=== PATIENT | female | born 1960 | race Caucasian/White ===

== ENCOUNTER 2024-08-02 06:18 | Day surgery (SDC) | payer BC, SELFPAY ==
[2024-08-02] VITALS (23 sets, daily range): BP systolic 97–128; BP diastolic 59–83; BMI 35.8
[2024-08-02 07:14] LABS: Glucose - Point of Care 130 mg/dl (70-99)
[2024-08-02 08:35] LABS: ACT-LR - POC 316 Seconds (116-155)
[2024-08-02 08:55] LABS: ACT-LR - POC 388 Seconds (116-155)
--- NOTE | 2024-08-02 09:02 | ITS.CL.ANGIO ---
[facility] - Angioplasty
Angioplasty
Procedure Report:
CARDIAC CATHETERIZATION REPORT
Date of Procedure: 08/02/2024
Referring: Cadence Kunz M.D.
INDICATION: Accelerating angina, known coronary artery disease.
PROCEDURE:
1. Left heart catheterization
2. Coronary angiography.
3. Successful PCI of OM 3.
ACCESS:
6 [place] right radial artery.
CATHETERS:
1. 5 [place] JR4.
2. 5 [place] JL 3.5.
3. 6 [place] EBU 3.5 guiding catheter.
HEMODYNAMIC DATA
Weight (kg): 91.6
AO (s/d/x, mmHg): 110/75/91
LV (s/x mmHg): 110/14
LEFT VENTRICULOGRAPHY: Not performed.
CORONARY ANGIOGRAPHY
Dominance: Right.
Left Main: Short, bifurcating vessel. There is no appreciable coronary artery disease.
LAD: Normal size vessel giving rise to 1 significant diagonal. There is dense calcification throughout the proximal and mid vessel with mild to moderate luminal irregularities but no discrete stenosis.
Ramus: Congenitally absent.
Circumflex: Normal size, nondominant vessel giving rise to 3 obtuse marginals. Patent stents are observed in the proximal margin of OM1 as well as the mid circumflex. OM 2 and OM 3 originate very close to 1 another. There is a 99% lesion of OM
3 with CINDY I flow. There is a hazy, 70% lesion in the true AV groove circumflex distal to OM 3.
RCA: Normal size, dominant vessel. Patent stents are observed in the proximal vessel as well as the mid vessel. There is at least moderate calcification through the majority of the artery. There is a 30% lesion in the mid RCA as it enters the
crux.
INTERVENTION(S)
1. Successful PCI of the 99% ostial OM 3 lesion ([employer]onic [place] 2.25 x 12 BHANU, postdilated with a 2.25 NC balloon) with reduction in stenosis to 0%, restoring CINDY-3 flow.
Narrative:
The decision was made to proceed with percutaneous coronary intervention. The diagnostic catheter was removed over a wire and a 6Fr EBU 3.5 guiding catheter was advanced to the aortic root and seated in the left main coronary artery. Additional
heparin was given and a Power Turn Flex wire was advanced into the distal circumflex and into OM 3 where there was significant wire buckling.
A quick cross microcatheter was advanced into the distal circumflex to assist with wiring of OM 3. The power turn flex wire was withdrawn and a whisper wire was advanced through the microcatheter and into the OM 3. The wire was advanced into the
distal OM 3 with some difficulty. The quick cross microcatheter was withdrawn.
The 99% ostial OM 3 lesion was predilated with a 1.5 x 12 semi-compliant balloon to 12 jesus.
The whisper wire was exchanged for a power turn flex wire using the quick cross microcatheter and wire pinning technique. A BMW wire was advanced into the true AV groove circumflex for protection. The OM 3 lesion was predilated again with a 2.0 x
12 semicompliant balloon. During this part of the procedure, the patient did disclose that she was having some chest pain. Nitroglycerin spray was administered sublingually. Angiography confirmed CINDY-3 flow had been restored in the OM 3 and
remained in the AV groove circumflex.
The semi-compliant balloon was removed and a Medtronic [place] 2.25 x 12 drug-eluting stent was advanced. The stent was deployed at 12 atmospheres. The stent balloon was removed. A 2.25 x 8 noncompliant balloon was advanced into the stent and
the stent was postdilated to 12 atmospheres throughout and 16 jesus at the origin. Angiography was performed in orthogonal views, confirming good stent expansion and an excellent angiographic result. The patient reported that her chest pain was
dissipating. The coronary wire was withdrawn and the guide was disengaged from the artery. The catheter was removed over a standard J-wire.
Closure Device: Vascular band.
Radiation (mGy): 1441.67
DAP (cm2.Gy): 98.9650
Fluoroscopy time (minutes): 15.3
Sedation time (minutes): 76
CONCLUSIONS
1. Right dominant circulation with patent stents in the proximal and mid RCA, a 30% lesion in the mid RCA as it enters the crux, dense calcification throughout the proximal and mid LAD with luminal irregularities, patent stents in the origin of OM1
as well as the mid circumflex, a 70% lesion in the small distal circumflex beyond the origin of OM 3 and a 99% lesion in the origin of OM 3 with CINDY I flow, status post successful PCI ([employer]tronic [place] 2.25 x 12 BHANU, postdilated with a 2.25
NC balloon) with reduction in stenosis to 0%, restoring CINDY-3 flow.
2. Normal filling pressures (LVEDP = 14 mmHg at 91.6 kg).
RECOMMENDATIONS:
1. Expectant management after cardiac catheterization via right radial approach.
2. Limited weight bearing on the right wrist for one week.
3. Dual antiplatelet therapy with aspirin and clopidogrel for at least 12 months, followed by aspirin indefinitely.
4. Aggressive secondary prevention with high-dose, high potency statin, diet and lifestyle modification.
5. Goal LDL <55.
6. Guideline directed medical therapy as hemodynamics will tolerate.
7. Referral to cardiac rehab.
8. Stable for outpatient follow-up with Dr. Kunz at [facility].
Copy to: Cadence Kunz M.D., Cindy Patterson D.O.
Sebastián Gaona DO, FACC, FACP
--- NOTE | 2024-08-02 13:39 | W.PN.UPDATE ---
Update Note
Progress Note Update
Pt seen post OM3 PCI. Right radial cath site without ht/bleeding, non tender. OOB ambulating. Post EKG NSR 68s, no acute changes. To remain on DAPT w/asa, plavix as before- 300mg plavix bolus given post stenting today. Mild chest discomfort post
cath, no acute EKG change and relieved over time with rest. This is likely post procedural pain that will mellisa over the next 24 hours. Cardiac rehab consulted. Followup with Dr. Kunz as scheduled. Home today if cath site/tele remain stable.
== END 2024-08-02 14:05 | disposition home or self-care (01) ==
LOC: CATH 06:18
PROVIDERS: ATTENDING PHYSICIAN Internal Medicine Cardiovascular Disease; FAMILY PHYSICIAN Internal Medicine; OTHER PHYSICIAN Internal Medicine Cardiovascular Disease
DX: I25.110 Atherosclerotic heart disease of native coronary artery with unstable angina pectoris (principal); I10 Essential (primary) hypertension; E78.5 Hyperlipidemia, unspecified; I25.2 Old myocardial infarction; Z95.5 Presence of coronary angioplasty implant and graft; E11.9 Type 2 diabetes mellitus without complications; K21.9 Gastro-esophageal reflux disease without esophagitis; G25.0 Essential tremor; Z79.82 Long term (current) use of aspirin; Z79.01 Long term (current) use of anticoagulants; Z79.85 Long-term (current) use of injectable non-insulin antidiabetic drugs; Z79.84 Long term (current) use of oral hypoglycemic drugs
CPT/HCPCS: C1769; C1725; C1894; 82962; 85347; 93005; 93458; C1874; C9600; Q9967

== ENCOUNTER 2024-11-05 15:03 | Outpatient (RCR) | payer BC, SELFPAY ==
[2024-10-25 14:38] LABS: Glucose - Point of Care 92 mg/dl (70-99)
[2024-10-27 10:49] LABS: Glucose - Point of Care 212 mg/dl (70-99)
[2024-10-27 11:38] LABS: Glucose - Point of Care 184 mg/dl (70-99)
[2024-10-29 13:13] LABS: Glucose - Point of Care 145 mg/dl (70-99)
[2024-10-29 13:54] LABS: Glucose - Point of Care 83 mg/dl (70-99)
[2024-11-01 13:05] LABS: Glucose - Point of Care 164 mg/dl (70-99)
[2024-11-01 13:57] LABS: Glucose - Point of Care 95 mg/dl (70-99)
[2024-11-03 13:05] LABS: Glucose - Point of Care 159 mg/dl (70-99)
[2024-11-03 14:01] LABS: Glucose - Point of Care 89 mg/dl (70-99)
[2024-11-03 14:50] LABS: Glucose - Point of Care 130 mg/dl (70-99)
== END 2024-11-05 23:59 | disposition home or self-care (01) ==
LOC: CRHB 15:03
PROVIDERS: ATTENDING PHYSICIAN Internal Medicine Cardiovascular Disease; FAMILY PHYSICIAN Internal Medicine
DX: I25.10 Atherosclerotic heart disease of native coronary artery without angina pectoris (principal); Z95.5 Presence of coronary angioplasty implant and graft
CPT/HCPCS: 82962; 93797; 93798

== ENCOUNTER 2025-05-24 16:18 | Inpatient (IN) | payer BC, SELFPAY ==
[2025-05-24] VITALS (7 sets, daily range): BP systolic 108–138; BP diastolic 69–86; BMI 37.5
[2025-05-24 12:58] LABS: Hematocrit 39.3 % (37.0-47.0); Hemoglobin 13.1 g/dL (12.0-16.0); Mean Corp Hgb Conc. 33.3 g/dL (33.0-37.0); Mean Corpuscular Volume 91.0 fL (81.0-99.0); Nucleated Red Blood Cells % 0 %; Platelet Count 199 10^3/uL (130-400); Red Cell Dist. Width 13.2 % (11.5-14.5)
[2025-05-24 13:13] LABS: ALT (SGPT) 31 U/L (0-35); AST (SGOT) 28 U/L (14-36); Albumin 4.4 g/dl (3.5-5.0); Alkaline Phosphatase 76 U/L (38-126); Blood Urea Nitrogen 11 mg/dl (7-17); Calcium 8.7 mg/dl (8.4-10.2); Carbon Dioxide 29 mmol/L (22-30); Chloride 101 mmol/L (98-107); Glucose 142 mg/dl (70-99); Potassium 4.2 mmol/L (3.5-5.1); Sodium 135 mmol/L (135-145); Total Protein 6.8 g/dl (6.3-8.2); eGFR > 60.00
[2025-05-24 13:23] LABS: Troponin I < 0.012 ng/ml
--- NOTE | 2025-05-24 14:33 | ED.GENMED ---
History of Present Illness
<Cammy Armenta PA-C - Last Filed: 05/24/25 19:11>
General
Chief Complaint: Chest Pain
Source: patient and records
Exam Limitations: none
Time Seen by Provider: 05/24/25 14:29
History of Present Illness
History of Present Illness:
65yoF with a history of coronary artery disease s/p PCI, hypertension, hyperlipidemia, type 2 diabetes, and essential tremor s/p deep brain stimulator presenting for evaluation of chest pain. Patient was last catheterized in July 2024. There
was a 99% ostial OM 3 lesion that was stented at that time. She had an episode of angina in February while she was walking in [place]. She has been having recurrent episodes of angina since then which have now become more frequent. She had chest pain
yesterday while walking up the steps. She did have to take a nitroglycerin at that time. She had another episode of chest pain today while she was walking her dogs upstairs. She also had chest pain while walking from the waiting room into her
exam room. She describes a burning, pressure pain in her left chest that radiates into the neck. She had diaphoresis yesterday which she has not had since having her MD 20 years ago. She denies any associated nausea, vomiting, dizziness, syncope,
shortness of breath. She follows with Dr. Kunz in [place] and she was advised to go to the ED for evaluation.
Past History
<Cammy Armenta PA-C - Last Filed: 05/24/25 19:11>
Past History
ED Past Medical History: HTN, Hypercholesterolemia and Other (diabetes)
Social History
Tobacco: Former smoker
Drug: None
Personal:
Phy Exam
<Cammy Armenta PA-C - Last Filed: 05/24/25 19:11>
General Physical Exam
General Presentation: well appearing and no apparent distress
General Skin: warm and dry
General Habitus: normal
Cardiovascular Exam
Cardiovascular Exam: regular rate/rhythm, no edema, no murmur and normal peripheral pulses (2+ radial and DP pulses bilaterally)
Pulmonary Exam
Pulmonary Exam: lungs clear, no respiratory distress, no rales, no crackles, no rhonchi and no wheezing
Neurological Exam
Neurological Exam: alert
[place]aj Coma Scale
Eye Opening: Spontaneous
Verbal Response: Oriented
Motor Response: Obeys Commands
GCS Total Score: 15
Skin Exam
Skin Exam: normal color and warm/dry
Psychiatric Exam
Psychiatric Exam: normal mood/affect
<Grady Toribio DO - Last Filed: 05/24/25 17:11>
[place] Coma Scale
GCS Total Score: 15
Scores
<Cammy Armenta PA-C - Last Filed: 05/24/25 19:11>
Heart Score for Chest Pain Patients
STEMI patient?: No
History: Highly Suspicious
ECG: Normal
Age: >45 - <65 years
Risk Factors: >/= 3 Risk Factors or History of CAD
Troponin: </= Normal Limit
Heart Score for Chest Pain Patients: 5
Heart Score Risk: 20.3% MACE over next 6 weeks
Course
<Cammy Armenta PA-C - Last Filed: 05/24/25 19:11>
Orders/Labs/Results
Orders:
Orders
05/24/25 12:21
EKG [Electrocardiogram (*1)] Urgent
Reason for Study: Chest Pain
05/24/25 12:22
EKG- Treatment ONCE
05/24/25 12:47
Complete Blood Count/With Diff Urgent
Comprehensive Metabolic Panel Urgent
Troponin I Urgent
05/24/25 14:57
Cardiac Monitoring- Treatment ONCE
EKG- Treatment ONCE
05/24/25 Dinner
Cholesterol Lowering
At Your Request: Full Participation
Cholesterol Lowering: Sodium, 2 Gram
05/24/25 15:02
CR Chest - 2 Views Urgent
Comment:
Reason For Exam: CP
05/24/25 15:45
Electrocardiogram (*1) Urgent
Reason for Study: Chest Pain
05/24/25 15:49
Admit/Transfer Patient As Directed
Co-Sign Provider:
Level of Care: Inpatient admission
Assign to:: IVU
Physician / Group: CBC
Diagnosis: Accerlating angina
Reason for Hospitalization: Accerating angina, CAD
Expected length of stay greater than two midnights?: Yes
ELOS- Estimated Length of Stay in days: 3
I certify the patient meets the requirements for IP care: Yes
05/24/25 15:50
Code Status As Directed
Resuscitation Status: Full Code
PRN Pain Medication Management As Directed
May give lesser potent ordered pain med per pt: Yes
preference::
Protocol:: Medication orders for pain may be administered in a
manner that supports deferring to patient preference
when the pt is:
- Requesting an ordered lesser potent pain medication.
Least to most potent pain medications are defined
as: acetaminophen < NSAID < tramadol < opioids
(morphine, oxycodone, hydromorphone).
- Requesting a lesser dose of the same medication IF
ORDERED.
- Requesting a less intrusive route of administration
if both routes are prescribed by the provider (PO <
IV).
05/24/25 16:07
Troponin I Urgent
05/24/25 18:08
Electrocardiogram (*1) Q6H
Reason for Study: Chest Pain
Comment: at admission and Q3H for total of 3, to be done with each troponin
Troponin I Q6H
Comment: at admit & Q3H for 3 total including ED draws, obtain ECG with each level
Acetaminophen [Tylenol] 650 mg PO Q4HPRN PRN
Nitroglycerin Sublingual [Nitrostat (Sublingual)] 0.4 mg SL [id number] PRN
05/24/25 18:08
Echo 2D MMode Color/Doppler Routine
Reason for Study: chest pain
Glycohemoglobin (HgbA1c) Routine
Activity As Directed
Activity Level: As Tolerated
INT (Intravenous Needle Therapy) As Directed
Comment: maintain peripheral IV access
Intake/ Output As Directed
Frequency: Per unit guidelines
Vital Signs As Directed
Frequency: q4h
Weight As Directed
Frequency: Once
DX Deep Vein Thrombosis Video Routine
05/24/25 18:30
Heparin 5,000 units SC Q8
05/25/25 00:08
Electrocardiogram (*1) Q6H
Reason for Study: Chest Pain
Comment: at admission and Q3H for total of 3, to be done with each troponin
Troponin I Q6H
Comment: at admit & Q3H for 3 total including ED draws, obtain ECG with each level
05/25/25 Breakfast
NPO
Allow oral meds: Yes
Allow clear liquids: No
NPO for procedure after (time): Midnight for cardiac catherization
Basic Metabolic Panel IN AM
Cardiovascular Evaluation IN AM
Abnormal Lab Results
05/24/25
12:47
Glucose 142 H mg/dl
(70-99)
Total Bilirubin 1.7 H mg/dl
(0.2-1.3)
05/24/25 12:47
05/24/25 12:47
Vital Signs
Initial and Last Documented VS:
Initial Vital Signs
Temp Pulse Resp BP Pulse Ox
98.1 F 76 20 138/78 97
05/24/25 12:28 05/24/25 12:28 05/24/25 12:28 05/24/25 12:28 05/24/25 12:28
Last Documented Vital Signs
Temp Pulse Resp BP Pulse Ox
98.3 F 75 16 126/86 97
05/24/25 18:14 05/24/25 18:45 05/24/25 18:14 05/24/25 18:15 05/24/25 18:14
<Grady Toribio, DO - Last Filed: 05/24/25 17:11>
Orders/Labs/Results
Orders:
Orders
05/24/25 12:21
EKG [Electrocardiogram (*1)] Urgent
Reason for Study: Chest Pain
05/24/25 12:22
EKG- Treatment ONCE
05/24/25 12:47
Complete Blood Count/With Diff Urgent
Comprehensive Metabolic Panel Urgent
Troponin I Urgent
05/24/25 14:57
Cardiac Monitoring- Treatment ONCE
EKG- Treatment ONCE
05/24/25 Dinner
Cholesterol Lowering
At Your Request: Full Participation
Cholesterol Lowering: Sodium, 2 Gram
05/24/25 15:02
CR Chest - 2 Views Urgent
Comment:
Reason For Exam: CP
05/24/25 15:45
Electrocardiogram (*1) Urgent
Reason for Study: Chest Pain
05/24/25 15:49
Admit/Transfer Patient As Directed
Co-Sign Provider:
Level of Care: Inpatient admission
Assign to:: IVU
Physician / Group: CBC
Diagnosis: Accerlating angina
Reason for Hospitalization: Accerating angina, CAD
Expected length of stay greater than two midnights?: Yes
ELOS- Estimated Length of Stay in days: 3
I certify the patient meets the requirements for IP care: Yes
05/24/25 15:50
Code Status As Directed
Resuscitation Status: Full Code
PRN Pain Medication Management As Directed
May give lesser potent ordered pain med per pt: Yes
preference::
Protocol:: Medication orders for pain may be administered in a
manner that supports deferring to patient preference
when the pt is:
- Requesting an ordered lesser potent pain medication.
Least to most potent pain medications are defined
as: acetaminophen < NSAID < tramadol < opioids
(morphine, oxycodone, hydromorphone).
- Requesting a lesser dose of the same medication IF
ORDERED.
- Requesting a less intrusive route of administration
if both routes are prescribed by the provider (PO <
IV).
05/24/25 16:07
Troponin I Urgent
05/24/25 18:08
Electrocardiogram (*1) Q6H
Reason for Study: Chest Pain
Comment: at admission and Q3H for total of 3, to be done with each troponin
Troponin I Q6H
Comment: at admit & Q3H for 3 total including ED draws, obtain ECG with each level
Acetaminophen [Tylenol] 650 mg PO Q4HPRN PRN
Nitroglycerin Sublingual [Nitrostat (Sublingual)] 0.4 mg SL [id number] PRN
05/24/25 18:08
Echo 2D MMode Color/Doppler Routine
Reason for Study: chest pain
Glycohemoglobin (HgbA1c) Routine
Activity As Directed
Activity Level: As Tolerated
INT (Intravenous Needle Therapy) As Directed
Comment: maintain peripheral IV access
Intake/ Output As Directed
Frequency: Per unit guidelines
Vital Signs As Directed
Frequency: q4h
Weight As Directed
Frequency: Once
DX Deep Vein Thrombosis Video Routine
05/24/25 18:30
Heparin 5,000 units SC Q8
05/25/25 00:08
Electrocardiogram (*1) Q6H
Reason for Study: Chest Pain
Comment: at admission and Q3H for total of 3, to be done with each troponin
Troponin I Q6H
Comment: at admit & Q3H for 3 total including ED draws, obtain ECG with each level
05/25/25 Breakfast
NPO
Allow oral meds: Yes
Allow clear liquids: No
NPO for procedure after (time): Midnight for cardiac catherization
Basic Metabolic Panel IN AM
Cardiovascular Evaluation IN AM
Abnormal Lab Results
05/24/25
12:47
Glucose 142 H mg/dl
(70-99)
Total Bilirubin 1.7 H mg/dl
(0.2-1.3)
05/24/25 12:47
05/24/25 12:47
Vital Signs
Initial and Last Documented VS:
Initial Vital Signs
Temp Pulse Resp BP Pulse Ox
98.1 F 76 20 138/78 97
05/24/25 12:28 05/24/25 12:28 05/24/25 12:28 05/24/25 12:28 05/24/25 12:28
Last Documented Vital Signs
Temp Pulse Resp BP Pulse Ox
98.3 F 75 16 126/86 97
05/24/25 18:14 05/24/25 18:45 05/24/25 18:14 05/24/25 18:15 05/24/25 18:14
<Cammy Armenta PA-C - Last Filed: 05/24/25 19:11>
MDM/Problems Addressed
Differential Diagnosis Includes:
65yoF presenting for increasing episodes of chest pain over the past 1-2 weeks. Hx of CAD s/p multiple stents. She had chest pain just from walking from the waiting room to her exam room. Asymptomatic on initial exam. VSS. She is well-appearing in
no distress. Differential diagnosis includes: Angina, ACS, less likely PE
Initial ED plan: Workup initiated in triage. EKG shows normal sinus rhythm without ischemic changes and troponin undetectable. Presentation concerning for accelerated angina. Will consult cardiology, obtain delta troponin/EKG, and chest x-ray.
<Cammy Armenta PA-C - Last Filed: 05/24/25 19:11>
*Pulse Oximetry
SaO2: 97
Oxygen Mode of Delivery: Room air
Patient hypoxic: no
*EKG
Interpreted by ED Provider?: Yes
EKG Intrepretation Date: 05/24/25
Heart Rate: 82
Rate: normal
Rhythm: sinus
[place]: normal axis
Interval: normal interval
QRS Pattern: normal QRS
Ischemia: no ischemia
*Critical Care Note
Total Time (30-74mins, 75-104mins- exclusive of procedures): Not Applicable
<Cammy Armenta PA-C - Last Filed: 05/24/25 19:11>
Update Note
Update Note:
Repeat troponin and EKG unchanged. Chest x-ray is clear. Patient was evaluated by cardiology team. She will be admitted for cardiac catheterization tomorrow.
ED Attending Note
<Cammy Armenta PA-C - Last Filed: 05/24/25 19:11>
-
Portions of this chart may have been created with voice recognition software.� Occasional wrong word or��sound alike� substitutions may have occurred due to the inherent limitations of voice recognition software.
<Grady Toribio DO - Last Filed: 05/24/25 17:11>
ED Attending Note
Patient seen and examined by attending physician: Yes
ED Attending Note:
I reviewed and agree with history treatment plan by Cammy Armenta PA-C. My exam revealed 65-year-old female in no acute distress. She denies chest pain at this time. Will admit to cardiology and plan for cardiac catheterization in AM.
Discharge Plan
Departure
Patient Disposition: Admit
Date of Disposition: 05/24/25
Time of Disposition: 16:03
Presentation/result/management discussed w/ accepting MD/DO: Dr. Cai
Discharge Problem:
Chest pain
Interventions
Interventions:
*Risk Screen - Suicide Last Done: 05/24/25 12:28
*General Assessment Last Done: 05/24/25 15:04
*Neglect/Abuse Screening Last Done: 05/24/25 12:33
*ED- Fall Risk Assessment Last Done: 05/24/25 15:04
*ED COVID-19 Vaccine History Last Done: 05/24/25 15:04
*ED Influenza Vaccine History Last Done: 05/24/25 15:04
*Nursing Disposition Last Done: 05/24/25 18:51
ED- Cardiac Assessment Last Done: 05/24/25 15:04
Discharge Date and Time
Discharge Date/Time: 05/24/25 18:52
--- NOTE | 2025-05-24 15:56 | HPS.HSE ---
Addendum entered and electronically signed by Matthew Cai MD 05/24/25 17:33:
I saw and evaluated the patient, and I provided the substantive portion of the medical decision making.
I reviewed and agree with the note by Yanet Siegel and it accurately reflects our care.
I personally performed the medical decision making of the this encounter and my assessment and plan is below:
65-year-old female known to patient and my with a history of CAD status post multiple PCI's most recently 07/2024, hypertension hypercholesterolemia, DM 2, and obesity who presented for evaluation of progressive chest pain. Since March she has had
her typical angina described as a mid anterior burning that radiates to her throat. It has been happening with less and less exertion and yesterday evening happened when climbing the stairs. Pain was not relieved until she tried a nitroglycerin.
This pain then recurred again this morning when climbing the stairs. She is concerned about the symptoms with less and less effort despite increasing OMT.. No rest symptoms. EKG was reviewed and showed normal sinus rhythm without any ischemia.
Initial troponin is negative. On exam shows a regular rate and rhythm with a normal S1-S2 no murmur rubs gallops were appreciated lungs were clear to auscultation bilateral without any wheeze or rhonchi, legs were warm and well perfused without and
clubbing cyanosis or edema.
Assessment:
Accelerating angina
Known CAD with prior PCI
Hypertension
Hyperlipidemia
Ufw-bvsrixa-aouzghosg diabetes
Plan:
Trend troponin
Keep n.p.o. after midnight for cardiac catheterization.
For now we will just continue aspirin and Plavix if troponin is positive will need to start heparin drip
Continue beta-kevin, nitrate, and statin.
Original Note:
Family Physician
-
Primary Administrative Analyst: Dr. Kunz
Chief Complaint
-
Chest pain
History of Present Illness
Altagracia Infante is a 65-year-old female (known to Dr. Kunz, her primary inpatient coder), with CAD (most recent PCI 07/2024), hypertension, hypercholesterolemia, type 2 diabetes mellitus, GERD, and deep brain stimulator implant who presented to
the emergency department with a chief complaint of chest pain. She describes her chest pain as midsternal anterior burning. It radiates into her throat. It lasts a few minutes but improves with rest. Today she had associated diaphoresis which
was reminiscent of her prior SD. She has required nitroglycerin to achieve relief. Chest pain always occurs with exertion but is becoming more frequent and is requiring less exertion. Initially, this started in February. Medication was adjusted.
She now is having chest pain anytime she walks up the steps or with any incline. She also endorses having chest pain on shorter distance walks. This is becoming limiting. At rest, she is currently chest pain-free. Her EKG does not demonstrate
any acute ischemia. Initial troponin <0.012.
Medical History
Past Medical History
Past Medical History: Reports CAD, HTN, Hypercholesterolemia, Hypothyroidism and NIDDM
Past Surgical History: Reports Appendectomy, Cholecystectomy and Other (Hernia, gastric bypass)
Social History
Tobacco: Former Smoker
Alcohol: None
Personal:
Living: With Family
Employment: Retired (claims technician)
Family History
Family History: Not pertinent
Allergies / Home Medications
Allergies reflects when Allergies were last updated in [facility].
Home Medications with original date entered in [facility]
Allergy/Medication List:
Allergies:
Denies food and drug allergies.
Home medication list:
Aspirin 81 mg daily
Calcium carbonate 1 tablet p.o. at bedtime
Cholecalciferol 2000 units p.o. at bedtime
Citalopram 20 mg p.o. daily
Clopidogrel 75 mg p.o. daily
Colchicine 0.6 mg p.o. daily
Cyanocobalamin 1000 mcg p.o. at bedtime
Ezetimibe 10 mg p.o. daily
Famotidine 20 mg p.o. at bedtime
Ferrous sulfate 325 mg p.o. daily
Isosorbide mononitrate 60 mg p.o. daily
Levothyroxine 112 mcg p.o. daily
Metformin 500 mg p.o. twice daily
Metoprolol succinate 200 mg p.o. daily
Multivitamin 1 tablet p.o. daily
Nitroglycerin 0.4 mg sublingual every 5 minutes x 3 as needed chest pain
Ozempic 2 mg SQ weekly
Pantoprazole 40 mg p.o. daily
PreserVision 2 capsules p.o. daily
Ramipril 1.25 mg p.o. at bedtime
Rosuvastatin 20 mg p.o. daily
Review of Systems
-
History Source: Patient
A 12 point ROS was completed and negative except as noted: Yes
Constitutional: Reports No Symptoms
EENT: Reports No Symptoms
Respiratory: Reports No Symptoms
Cardiac: Reports See HPI
Abdomen/GI: Reports No Symptoms
: Reports No Symptoms
Musculoskeletal: Reports No Symptoms
Skin: Reports No Symptoms
Neurological: Reports No Symptoms
Endocrine: Reports No Symptoms
Hematologic/Lymphatic: Reports No Symptoms
Psych: Reports No Symptoms
Physical Exam
Vital Signs
Vital Signs
Temp Pulse Resp BP Pulse Ox
98.2 F 70 15 114/72 96
05/24/25 15:14 05/24/25 15:07 05/24/25 15:07 05/24/25 15:06 05/24/25 15:07
Physical Exam
General: Well Developed, Well Nourished, No Apparent Distress and Comfortable
HEENT: NormoCephalic, Anicteric and Moist mucous membranes
Respiratory: Clear and Non Labored Respirations
Cardiac: S1/S2 and Regular Rhythm; No Peripheral Edema
Breast: Deferred by me
GI: Soft, Non Tender, Non Distended and Normal Bowel Sounds
Rectal: Deferred by Provider
Genito-urinary: Deferred by me
Musculoskeletal: No Clubbing and No Cyanosis
Skin: Warm and Dry
Neuro: AO x 3
Hematologic/Lymphatic: No Lymphadenopathy
Psych: Calm
Laboratory Results
-
05/24/25 12:47
05/24/25 12:47
Laboratory Results
Total Bilirubin 1.7 mg/dl (0.2-1.3) H 05/24/25 12:47
AST 28 U/L (14-36) 05/24/25 12:47
ALT 31 U/L (0-35) 05/24/25 12:47
Alkaline Phosphatase 76 U/L (38-126) 05/24/25 12:47
Troponin I < 0.012 ng/ml 05/24/25 12:47
Data Reviewed
-
Medical Tests (Nuc Med, Echo, EKG etc): Report Reviewed by me
Lab Data: Labs Reviewed by me
Old Records: Reviewed
Impression/Plan
-
I/P: 65F with CAD (most recent PCI 07/2024), hypertension, hypercholesterolemia, type 2 diabetes mellitus, GERD, and deep brain stimulator implant who presented to the emergency department with a chief complaint of chest pain.
Primary inpatient coder: Dr. Kunz
Unstable angina
- No rest pain
- Failed outpatient escalation of medical therapy
- Nitro PRN
- Continue ASA and clopidogrel
- Echocardiogram
- Cardiac catheterization in a.m., hold metformin
CAD
- SD with PCI to LCx 2003
- RCA angioplasty 2008
- Angioplasty with stenting to RCA 2012
- Angioplasty with atherectomy and stenting of the circumflex as well as angioplasty and stenting of the PL OM 09/06/2022
- Long-term DAPT per primary inpatient coder
- Continue beta-kevin, statin, and DAPT as above
Hypertension
-BP currently at goal, continue current medical therapy pending cardiac catheterization
Mixed hyperlipidemia, fasting lipid panel in a.m., continue rosuvastatin at current dosing
Type 2 diabetes mellitus, on GLP-1, HgbA1c added
GERD, chronic and stable
Deep brain stimulator implant
[2025-05-24 16:39] LABS: Troponin I < 0.012 ng/ml
--- NOTE | 2025-05-24 19:21 | PTCARENOTE ---
Pt received from the ED at 1815. Pt denies any chest pain or sob. Room air sat 98%. SR, rate in the 70's to 80's.
[2025-05-24] MEDS: HEPARIN 5000 UNITS SC ×2 (19:43→22:48)
[2025-05-24 20:27] LABS: Troponin I 0.014 ng/ml
--- NOTE | 2025-05-24 21:04 | PTCARENOTE ---
Rec'd pt at change of shift. Pt AAO*3, VSS, and SR on TELE monitor. Pt denies any chest pain or discomfort at this time, however reports chest pain with exertion. Pt instructed to ambulated only with staff assistance. Pt oriented to room and
unit. Pt now resting with call zhu in reach. Pt npo after midnight for possible procedure in AM. See MAR and flowchart for full pt care and assessment.
--- NOTE | 2025-05-24 21:49 | PTCARENOTE ---
Troponin rec'd at 20:30 and resulted at 0.014. [address] Whitehead notified via [employer]. Additional troponin added and no addition orders at this time.
[2025-05-24] MEDS: AMBIEN 10 MG PO (22:47)
[2025-05-24] MEDS: REFRESH CELLUVISC GEL 1 DROPS BOTH EYES (22:48)
[2025-05-24] MEDS: CRESTOR 20 MG PO (22:48)
[2025-05-24] MEDS: VITAMIN D3 (cholecalciferol) 50 MCG PO (22:48)
[2025-05-24] MEDS: ALTACE 1.25 MG PO (22:49)
[2025-05-24] MEDS: OSCAL 500 + D 500 MG PO (23:02)
[2025-05-25] VITALS (13 sets, daily range): BP systolic 88–119; BP diastolic 59–73
[2025-05-25 01:01] LABS: Troponin I < 0.012 ng/ml
[2025-05-25 05:35] LABS: Blood Urea Nitrogen 11 mg/dl (7-17); Calcium 8.6 mg/dl (8.4-10.2); Carbon Dioxide 28 mmol/L (22-30); Chloride 103 mmol/L (98-107); Estimated Creatinine Clearance 102 ml/min; Glucose 93 mg/dl (70-99); HDL Cholesterol 41 mg/dl; LDL Cholesterol, Calculated 36 mg/dl; Potassium 4.1 mmol/L (3.5-5.1); Sodium 137 mmol/L (135-145); Very Low Density Lipoprotein 20 mg/dl (0-30); eGFR > 60.00
[2025-05-25 05:42] LABS: Troponin I < 0.012 ng/ml
[2025-05-25] MEDS: SYNTHROID 112 MCG PO (06:22)
[2025-05-25] MEDS: TOPROL XL 200 MG PO (07:52)
[2025-05-25] MEDS: PROTONIX 40 MG PO (07:52)
[2025-05-25] MEDS: ASPIR LOW (ENTERIC COATED) 81 MG PO (07:52)
[2025-05-25] MEDS: PLAVIX 75 MG PO (07:52)
[2025-05-25] MEDS: IMDUR (EXTENDED RELEASE) 60 MG PO (07:52)
--- NOTE | 2025-05-25 08:00 | PTCARENOTE ---
Assumed care of pt from prev nsg shift; Pt AAOx3 w/no c/o CP or SOB. Pt w/VSS w/HR in the 70's & BP 101/62 this AM. Pt is SR w/occas PVC's on telemetry monitoring. Pt NPO since 0000 for cardiac cath this AM. Report given to Zak from the [facility] &
pt transported to [facility] in her bed a short time later. Plan of care ongoing.
[2025-05-25 08:33] LABS: Glycohemoglobin (HgbA1c) 5.7 % (4.0-5.6)
[2025-05-25 09:33] LABS: ACT-LR - POC 224 Seconds (116-155)
[2025-05-25 09:50] LABS: ACT-LR - POC 265 Seconds (116-155)
[2025-05-25 10:05] LABS: ACT-LR - POC > 397 Seconds (116-155)
--- NOTE | 2025-05-25 10:27 | ITS.CL.ANGIO ---
Clinical Resource Nurse - Angioplasty
Angioplasty
Procedure Report:
CARDIAC CATHETERIZATION REPORT
Date of Procedure: 05/25/2025
Referring: Krystyna Cai M.D.
INDICATION: Known coronary artery disease, chest pain consistent with unstable angina.
PROCEDURE:
1. Left heart catheterization
2. Coronary angiography
3. Successful PTCA of the distal circumflex.
4. Successful snare of a stripped stent.
A total of 106 minutes of procedural/moderate sedation was utilized. An independent front office medical assistant was present to assist with and help manage the patient's level of consciousness and physiologic status.
ACCESS:
1. 6 [place] right radial artery using a modified Seldinger technique.
CATHETERS:
1. 5 [place]ian JR4.
2. 5 Tun[place]ian JL 3.5.
3. 6 [place]ian EBU 3.5 guiding catheter.
HEMODYNAMIC DATA
Weight (kg): 93.0
AO (s/d/x, mmHg): 111/79/93
LV (s/x mmHg): 111/15
AV gradient (x, mmHg): None.
LEFT VENTRICULOGRAPHY: Not performed.
CORONARY ANGIOGRAPHY
Dominance: Right.
Left Main: Normal size, bifurcating vessel. There is no coronary artery disease.
LAD: Normal size, densely calcified vessel. There are luminal irregularities throughout the proximal vessel.
Ramus: Congenitally absent
Circumflex: Large size, nondominant vessel giving rise to 3 obtuse marginals. Patent stents are observed in the mid circumflex, in between OM1 and OM 2. There is a patent stent in the ostium of OM1. There is a patent stent in the origin of
OM 3. There is a hazy, 90% lesion in the distal AV groove circumflex with CINDY-3 flow.
RCA: Normal size, dominant vessel. Patent stents are observed in the proximal vessel as well as the mid vessel with minimal ISR. There are minor luminal irregularities throughout the entire vessel.
INTERVENTION(S)
1. Successful PTCA of the 90% circumflex lesion (2.0 x 12 semicompliant balloon to 12 jesus) with reduction in stenosis to 30%, maintaining CINDY-3 flow.
2. Dislodgment of stent off of the delivery device.
3. Successful snaring and removal of the dislodged stent.
Narrative:
The decision was made to proceed with percutaneous coronary intervention. The diagnostic catheter was removed over a wire and a 6Fr EBU 3.5 guiding catheter was advanced to the aortic root and seated in the left main coronary artery. Additional
heparin was given and a BMW wire was advanced into the third obtuse marginal. A BMW wire was also advanced into the distal circumflex with some difficulty. A 2.0 x 12 semicompliant balloon was advanced over the circumflex wire, but the balloon
catheter would not enter the lesion and created a significant amount of guide disengagement. The balloon was withdrawn and a GuideLiner was advanced for support. A 1.5 x 12 semicompliant balloon was advanced over this wire with some support,
however this balloon would also not enter the lesion. At this point, we were concerned that the wire may have gotten behind a stent strut of the adjacent artery. The BMW wire and OM 3 was withdrawn and the BMW wire in the distal circumflex was
pulled back and reshaped. We attempted to reenter the distal circumflex artery but found that the wire was unable to recross the lesion.
This wire was then redirected back into OM 3 and a whisper wire was advanced into the distal circumflex. With some difficulty, the whisper wire was advanced into the distal circumflex beyond the lesion. The GuideLiner was readvanced for support
and the 1.5 x 12 semicompliant balloon was advanced into the distal circumflex. The lesion was dilated to 12 jesus. The 1.5 x 12 semicompliant balloon was withdrawn and the 2.0 x 12 semicompliant balloon was readvanced. The lesion was dilated again
to 12 jesus. While we were performing angioplasty on this lesion, the patient began complaining of some nausea and diaphoresis associated with hypotension. The patient was given several boluses of phenylephrine and was started on a norepinephrine
drip.
The semi-compliant balloon was removed and a Medtronic Micah [place] 2.0 x 12 drug-eluting stent was advanced. In spite of numerous repositionings, the removal of the OM 3 wire and GuideLiner support, the stent would not advance into the distal
circumflex. The decision was made to predilate more aggressively. The stent was withdrawn and the 2.0 x 12 semicompliant balloon was advanced. The lesion was dilated to 12 jesus again and the GuideLiner was advanced into sheathing motion,
positioning the GuideLiner at the origin of the vessel. The semicompliant balloon was withdrawn and the stent was readvanced, unfortunately still refusing to pass into the distal artery to allow for deployment. The decision was made to repeat the
procedure with a noncompliant balloon. The stent balloon was withdrawn.
At this time, we observed that the stent was no longer on the balloon after had been removed from the body. Fluoroscopic evaluation confirmed that the stent remained on the whisper wire at the distal origin of the GuideLiner. Several ideas were
entertained. An ensnare was advanced over the wire but would not enter the proximal margin of the GuideLiner. The 2.0 x 12 semicompliant balloon was readvanced next to the wire in an attempt to pin the stent in the GuideLiner. Unfortunately, the
balloon pushed the stent further into the artery, making this no longer an option. We considered stenting over top of the undeployed stent and into minute and the artery. Ultimately, we decided to remove the GuideLiner and readvanced the ensnare
over the wire. With the ensnare on the wire, we were able to snare the stent and pull it back into the guide. In order to maintain absolute safety, we made the decision to remove the entire guide system including the coronary wire.
We then readvanced a EBU 3.5 guiding catheter into the ascending aorta and seated in the origin of the left main coronary artery. Coronary angiography was performed before and after infusion of nitroglycerin 150 mcg. This demonstrated a reduction
in the circumflex stenosis to 30% with CINDY-3 flow and no significant collateral damage from the stent dislodgment. Given the size of the artery, which was relatively small but clearly symptomatic, the decision was made to accept this PTCA result
and manage her symptoms medically going forward.
The catheter was removed over a standard J-wire.
Closure Device: Vascular band.
Radiation (mGy): 1807.05
DAP (cm2.Gy): 128.28
Fluoroscopy time (minutes): 20.9
CONCLUSIONS
1. Right dominant circulation with patent stents in the proximal and mid RCA with luminal irregularities throughout, a patent stent in the origin of OM1, the origin of OM 3 and in the mid circumflex in between OM 1 and 2 and a 90% lesion in the
proximal margin of the distal circumflex immediately after OM 3, status post successful PTCA.
2. Attempted PCI of the 90% lesion with subsequent stripping of the stent off of the delivery catheter. Now status post successful snare and removal of the dislodged stent.
3. Mildly elevated filling pressures (LVEDP = 15 mmHg at 93.0 kg).
RECOMMENDATIONS:
1. Expectant management after cardiac catheterization via right radial approach.
2. Limited weight bearing on the right for one week.
3. Maintain dual antiplatelet therapy for medical management of her unstable angina.
4. Continue OMT/GDMT as hemodynamics will tolerate. She may be a good candidate for ranolazine.
5. Aggressive secondary prevention with high-dose, high potency statin and ezetimibe. Goal LDL <55.
6. Overnight monitoring.
7. Referral to cardiac rehab.
Copy to: Krystyna Cai M.D., Cindy Patterson DParminder.
Sebastián Gaona DO, FACC, FACP
--- NOTE | 2025-05-25 10:30 | PTCARENOTE ---
Rec'd report from Peg in the [facility] & rec'd pt back from [facility] AAOX3 w/no CP or SOB. Pt's VSS on return w/HR in the 60's & BP 96/66. Pt w/ R radial band in place & access site C/D/I w/no signs or symptoms of bleeding or hematoma. Pt advised
of activity restrictions & pt verbalized understanding. Pt w/call zhu within reach & no addtl needs at this time.
[2025-05-25] MEDS: HEPARIN SC ×2 (10:34→17:48)
--- NOTE | 2025-05-25 12:05 | CM ---
spoke to pt in room, she is prev indep, lives with her husb in a 2 story home with 1 step to enter. she denies any dc planning needs or dme's. plan is for dc to home when medically stable.
[2025-05-25] MEDS: OCUVITE SOFTGEL 2 CAP PO (14:10)
[2025-05-25] MEDS: FEOSOL 325 MG PO (14:10)
[2025-05-25] MEDS: CELEXA 20 MG PO (14:10)
[2025-05-25] MEDS: COLCHICINE 0.6 MG PO (14:10)
--- NOTE | 2025-05-25 20:35 | PTCARENOTE ---
Rec'd pt at change of shift. Pt AAO*3, VSS, and SR on TELE monitor. Pt denies any pain or discomfort and R radial site CDI. Pt agreed to activity restriction with R upper extremity. Pt now resting with call zhu in reach and at bedside.
Plan of care ongoing. See MAr and flowchart for full pt care and assessment.
[2025-05-25] MEDS: AMBIEN 10 MG PO (21:51)
[2025-05-25] MEDS: ALTACE 1.25 MG PO (21:52)
[2025-05-25] MEDS: PEPCID 20 MG PO (21:54)
[2025-05-25] MEDS: OSCAL 500 + D 500 MG PO (21:54)
[2025-05-25] MEDS: ZETIA 10 MG PO (21:54)
[2025-05-25] MEDS: HEPARIN 5000 UNITS SC (21:54)
[2025-05-25] MEDS: VITAMIN D3 (cholecalciferol) 50 MCG PO (21:54)
[2025-05-25] MEDS: VITAMIN B-12 1000 MCG PO (21:54)
[2025-05-25] MEDS: CRESTOR 20 MG PO (21:54)
[2025-05-25] MEDS: REFRESH CELLUVISC GEL 1 DROPS BOTH EYES (21:54)
[2025-05-25] MEDS: COLCHICINE 0.3 MG PO (23:46)
[2025-05-26 04:20] VITALS: BP 80/35
[2025-05-26 04:21] VITALS: BP 98/71
[2025-05-26 04:22] VITALS: BP 98/71
[2025-05-26 04:23] VITALS: BMI 37.6
[2025-05-26] MEDS: SYNTHROID 112 MCG PO (04:35)
[2025-05-26 05:15] LABS: Blood Urea Nitrogen 10 mg/dl (7-17); Calcium 8.8 mg/dl (8.4-10.2); Carbon Dioxide 26 mmol/L (22-30); Chloride 106 mmol/L (98-107); Estimated Creatinine Clearance 102 ml/min; Glucose 105 mg/dl (70-99); Hematocrit 36.1 % (37.0-47.0); Hemoglobin 11.8 g/dL (12.0-16.0); Mean Corp Hgb Conc. 32.7 g/dL (33.0-37.0); Mean Corpuscular Volume 89.6 fL (81.0-99.0); Platelet Count 181 10^3/uL (130-400); Potassium 4.4 mmol/L (3.5-5.1); Red Cell Dist. Width 13.4 % (11.5-14.5); Sodium 137 mmol/L (135-145); eGFR > 60.00
[2025-05-26 07:01] VITALS: BP 105/70
[2025-05-26] MEDS: PLAVIX 75 MG PO (07:43)
[2025-05-26] MEDS: TOPROL XL 200 MG PO (07:43)
[2025-05-26] MEDS: OCUVITE SOFTGEL 2 CAP PO (07:44)
[2025-05-26] MEDS: IMDUR (EXTENDED RELEASE) 60 MG PO (07:44)
[2025-05-26] MEDS: PROTONIX 40 MG PO (07:44)
[2025-05-26] MEDS: ASPIR LOW (ENTERIC COATED) 81 MG PO (07:44)
[2025-05-26] MEDS: HEPARIN 5000 UNITS SC (07:44)
[2025-05-26] MEDS: FEOSOL 325 MG PO (07:44)
[2025-05-26] MEDS: RANEXA EXTENDED RELEASE 500 MG PO (07:44)
[2025-05-26] MEDS: CELEXA 20 MG PO (07:44)
--- NOTE | 2025-05-26 08:22 | W.PN.CD ---
Today's Communication / Plan
-
Post PCI. As noted above patient with PTCA of left circumflex
Continue DAPT. Plavix and aspirin
Ranolazine added by Dr Gaona . will continue
Additional follow-up with primary it admin Dr Cardona
Discharge today
Impression / Plan
-
Primary it admin Dr. Kunz.
65-year-old female (known to Dr. Kunz, her primary it admin), with CAD with previous history of left circumflex and RCA stenting (most recent PCI 07/2024), hypertension, hypercholesterolemia, type 2 diabetes mellitus, GERD, and deep brain
stimulator implant who presented to the emergency department with a chief complaint of chest pain concerning for unstable angina. Troponins negative. Patient subsequently underwent cardiac catheterization which revealed 90% stenosis of the distal
AV groove circumflex. Patient ultimately underwent PTCA of left circumflex.
CAD/history of RCA and left circumflex stenting
- PTCA of 90% AV groove circumflex 05/25/2025.. There was initial attempt to place stent but there was dislodgment of the stent with successful staring and removal of stent. Patient subsequently underwent successful PTCA
-cath site fine
-Continue aspirin and Plavix
- Follow-up with Dr. Kunz
catheter report 05/25/2025 left main no CAD, LAD luminal irregularities, left circumflex patent stents in the mid circumflex patent stent in OM 90% stenosis in distal AV groove circumflex with CINDY-3 flow. RCA patent stents with minimal ISR.
INTERVENTION 05/25/2025
1. Successful PTCA of the 90% circumflex lesion (2.0 x 12 semicompliant balloon to 12 jesus) with reduction in stenosis to 30%, maintaining CINDY-3 flow.
2. Dislodgment of stent off of the delivery device.
3. Successful snaring and removal of the dislodged stent.
Physical Exam
Vital Signs/Labs
Vital Signs
Temp Pulse Resp BP Pulse Ox
97.8 F 75 20 105/70 94
05/26/25 07:01 05/26/25 07:43 05/26/25 07:01 05/26/25 07:43 05/26/25 07:01
05/25/25 05/26/25 05/27/25
06:59 06:59 06:59
Actual Weight 93 kg 93.2 kg
05/26/25 04:32
05/26/25 04:32
Triglycerides 100 mg/dl (10-149) 05/25/25 04:01
LDL Cholesterol, Calc 36 mg/dl 05/25/25 04:01
VLDL Cholesterol, Calc 20 mg/dl (0-30) 05/25/25 04:01
HDL Cholesterol 41 mg/dl 05/25/25 04:01
LAB Results
05/24/25 05/24/25 05/24/25
12:47 16:07 19:50
Troponin I < 0.012 < 0.012 0.014
05/25/25 05/25/25
00:10 04:01
Troponin I < 0.012 < 0.012
Physical Exam
EENT: Anicteric
Cardiovascular: Rhythm & rate is regular
Respiratory: Wheeze Absent and Rhonchi Absent
GI: Non tender
Neuro/Psych: Alert
Other: Cath Site (fine)
Data Reviewed
-
Date of Service: May 26, 2025
Medical Decision Making: Reviewed Test Results
X-Ray/CT/US/MRI/NUC/PET: Report Reviewed by me
Medical Tests (PFT, Pathology etc): Report Reviewed by me
Labs: Labs Reviewed by me
--- NOTE | 2025-05-26 10:43 | W.DS.TRANS ---
DC Summary - Manager Metrology
-
Discharge Instructions:
Discharge Diagnosis/Procedures Angioplasty to Left Circumflex/Marginal artery
Diet Low Cholesterol,Diabetic, Carb Controlled
Driving Restrictions No driving for 24 hours
Other Services Cardiac Rehab
Instructions:
Stand-Alone Forms: DC Instructions- Cath/EP Lab
Changes to Home Medications: Yes
Discharge Medications:
DC Medications w/original date entered in [facility]
metoprolol succinate 100 mg tablet,extended release 24 hr 200 mg PO DAILY 11/02/12
nitroglycerin 0.4 mg sublingual tablet 0.4 mg sublingual [id number] PRN chest pain 11/02/12
rosuvastatin 20 mg tablet 20 mg PO HS 11/02/12
vitamins A,C,H-dcnp-lemgid 4,296 mcg-226 mg-90 mg capsule (PreserVision AREDS) 2 cap PO DAILY 11/02/12
calcium 600 mg (carbonate)-ergocalciferol 3.125 mcg (125 unit) tablet 1 tab PO HS 11/03/12
cholecalciferol (vitamin D3) 50 mcg (2,000 unit) tablet 2,000 unit PO HS 11/03/12
clopidogrel 75 mg tablet 75 mg PO DAILY 09/17/13
aspirin 81 mg tablet,delayed release (Aspir-Low) 81 mg PO DAILY 09/12/16
cyanocobalamin (vitamin B-12) 1,000 mcg tablet 1,000 mcg sublingual HS 09/12/16
ferrous sulfate 325 mg (65 mg iron) tablet (iron) 325 mg PO DAILY 09/12/16
ezetimibe 10 mg tablet (Zetia) 10 mg PO HS 01/24/23
pantoprazole 40 mg tablet,delayed release 40 mg PO DAILY 01/24/23
isosorbide mononitrate 60 mg tablet,extended release 24 hr 60 mg PO DAILY #90 tabs 08/02/24
levothyroxine 112 mcg tablet 112 mcg PO DAILY 08/02/24
semaglutide 2 mg/dose (8 mg/3 mL) subcutaneous pen injector (Ozempic) 2 mg SC TU 08/02/24
carboxymethylcellulose sodium 1 % eye gel in a dropperette (Refresh Celluvisc) 1 drp BOTH EYES HS 05/24/25
citalopram 20 mg tablet 20 mg PO DAILY 05/24/25
dextran 70-hypromellose eye drops in a dropperette (Artificial Tears (PF) drops in a dropperette) 1 drp BOTH EYES QIDPRN PRN dry eye 05/24/25
famotidine 20 mg tablet 20 mg PO HS 05/24/25
metformin 500 mg tablet,extended release 24 hr 500 mg PO DAILY 05/24/25
Held on 05/26/25. Instructions: Resume on 05/27/25.
ramipril 1.25 mg capsule 1.25 mg PO HS 05/24/25
zolpidem 10 mg tablet 10 mg PO HS Sleep 05/24/25
colchicine 0.6 mg tablet 0.3 mg (1/2 x 0.6 mg) PO Q48H #1 tab 05/26/25
ranolazine 500 mg tablet,extended release,12 hr 500 mg PO BID #60 tabs 05/26/25
Home Medication Changes
new to ranolazine
Pending Results: No
--- NOTE | 2025-05-26 10:45 | PTCARENOTE ---
~[id number]: Handoff reprot received from nightshift RN. Pt Aox4, NSR 70s on tele, SBP 100s, RA satting 94%. Pt denies pain at this time. Independent in room. R radial site dressing CDI. All needs met at this time, call zhu within reach.
~[id number]: DC orders in for patient. Tele pack and PIV removed. DC paperwork reviewed with patient and family member, all questions answered at this time. Patient dc/d in stable condition with belongings and dc paperwork. Patient taken to lobby in
wheelchair.
== END 2025-05-26 10:45 | disposition home or self-care (01) | DRG 251 ==
LOC: IVU 16:18
PROVIDERS: Emergency Medicine; Internal Medicine Cardiovascular Disease; Nurse Practitioner Adult Health; Nurse Practitioner Gerontology; Physician Assistant; ADMITTING PHYSICIAN Internal Medicine Cardiovascular Disease; EMERGENCY PHYSICIAN Emergency Medicine; FAMILY PHYSICIAN Internal Medicine
PROC: 4A023N7 Measurement of Cardiac Sampling and Pressure, Left Heart, Percutaneous Approach (ICD-10-PCS; 2025-05-24)
PROC: 02P Heart and Great Vessels, Removal (ICD-10-PCS; 2025-05-24)
PROC: B2111ZZ Fluoroscopy of Multiple Coronary Arteries using Low Osmolar Contrast (ICD-10-PCS; 2025-05-24)
PROC: 02703ZZ Dilation of Coronary Artery, One Artery, Percutaneous Approach (ICD-10-PCS; 2025-05-24)
DX: T82.528A Displacement of other cardiac and vascular devices and implants, initial encounter (principal); I25.110 Atherosclerotic heart disease of native coronary artery with unstable angina pectoris; I10 Essential (primary) hypertension; E11.9 Type 2 diabetes mellitus without complications; E03.9 Hypothyroidism, unspecified; K21.9 Gastro-esophageal reflux disease without esophagitis; Y83.1 Surgical operation with implant of artificial internal device as the cause of abnormal reaction of the patient, or of later complication, without mention of misadventure at the time of the procedure; Y71.3 Surgical instruments, materials and cardiovascular devices (including sutures) associated with adverse incidents; Z79.02 Long term (current) use of antithrombotics/antiplatelets; Z79.82 Long term (current) use of aspirin; Z87.891 Personal history of nicotine dependence
CPT/HCPCS: 37197; 71046; 80048; 80053; 80061; 83036; 84484; 85025; 85027; 85347; 92920; 93005; 93306; 93458; 99152; 99153; 99285; C1725; C1769; C1874; C1894; Q9967